=== PATIENT | female | born 1970 | race Asian ===

== ENCOUNTER 2025-02-18 12:04 | Emergency (ER) | payer BC ==
[~2025-02-18] VITALS: Ht 152.4 cm; Wt 52.3 kg
--- NOTE | 2025-02-18 12:18 | ELECTROCARDIOGRAPH REPORT ---
[facility] Test Date: 2025-02-18 Test Time: 12:09:54 Pat Name: MARY CARMEN MIDDLETON Department: EMERGENCY ROOM Room: Gender: F Civil Designer: : 1970 Requested By: CHRIS TURNER Order Number: [id number] Reading MD: Measurements Intervals [place] Rate: 76 P: 70 ME: 156 QRS: 99 QRSD: 105 T: 52 QT: 382 QTc: 430 Interpretive Statements Sinus rhythm Borderline right axis deviation RSR' in V1 or V2, probably normal variant ST elevation, consider inferior injury Please click the below link to view image of tracing.
[2025-02-18 12:35] LABS: MEAN PLATELET VOLUME 7.9 FL (7.4-10.4); RED CELL DISTRIBUTION WIDTH 11.8 % (11.5-14.5)
[2025-02-18 12:48] LABS: CREATININE 0.65 MG/DL (0.40-0.90); PRO BRAIN NATRIURETIC PEPTIDE < 30 PG/ML (0-125); TOTAL CARBON DIOXIDE 30.4 MMOL/L (24-32); eCRCL 71 ML/MIN; eGFR > 90 ML/MIN
--- NOTE | 2025-02-18 13:35 | RADIOLOGY REPORT ---
CHEST RADIOGRAPH Indication: CP Technique: Single frontal view of the chest was obtained COMPARISON: None FINDINGS: Lines and Tubes: None Lungs: Clear Pleura: No effusion. No pneumothorax. Cardiomediastinal contours: Unremarkable Bones: Unremarkable IMPRESSION: No acute disease.
--- NOTE | 2025-02-18 13:35 | Physician Documentation ---
History of Present Illness ~ Chief Complaint: Palpitations Stated Complaint: CP Time Seen by MD: 13:29 Primary Medical Doctor: adelia landrum Mode of Arrival: POV HPI Female presents to the ED after having palpitations over the last three days. She denies any chest pain reports general good health. She is very athletic. Denies any alcohol use states she does utilize caffeine regularly. Shortness of breast. Acknowledges history of anxiety. Day of Onset: Feb 18, 2025 Medication Reconciliation Allergies: Coded Allergies: No Known Allergies (Unverified , 02/18/25) Review of Systems All Other Systems at this time: Reviewed and Negative ROS As stated above in the HPI, otherwise all systems are reviewed and negative. Physical Exam Vital Signs: Temperature: 98.4, Source: Temporal, Heart Rate: 85, Respiratory Rate: 16, BP: 143/85, Pulse Oximetry: 99, Weight: 52.270 Oxygen Flow Rate: 0 Physical Exam General: Alert, no apparent distress. Respiratory: Lungs clear, no respiratory distress. Chest: No accessory muscle use. Cardiovascular: Regular rate and rhythm, no murmurs. Gastrointestinal: Soft, nontender, nondistended. Bowels sounds present. Neurologic: Oriented x4. Psychiatric: Normal mood and affect. Skin: Normal color, warm and dry. No edema, no ecchymosis. Progress Results/Orders Results/Orders Vital Signs 02/18/25 02/18/25 02/18/25 12:15 12:41 14:01 Temp 98.4 98.4 Pulse 85 62 Resp 16 15 B/P (MAP) 143/85 102/76 Pulse Ox 99 100 O2 Flow Rate 0 Laboratory Tests Test 02/18/25 12:14 White Blood Count 3.8 L Red Blood Count 4.58 Hemoglobin 13.7 Hematocrit 39.8 Mean Corpuscular Volume 86.9 Mean Corpuscular Hemoglobin 29.9 Mean Corpuscular Hemoglobin Concent 34.4 Red Cell Distribution Width 11.8 Platelet Count 249 Mean Platelet Volume 7.9 Neutrophils (%) (Auto) 69.5 Lymphocytes (%) (Auto) 21.2 Monocytes (%) (Auto) 7.1 Eosinophils (%) (Auto) 1.9 Basophils (%) (Auto) 0.3 Neutrophils # (Auto) 2.7 Lymphocytes # (Auto) 0.8 L Monocytes # (Auto) 0.3 Eosinophils # (Auto) 0.1 Basophils # (Auto) 0.0 CBC Comment Sodium Level 141 Potassium Level 3.5 Chloride Level 102 Carbon Dioxide Level 30.4 Anion Gap 9 Blood Urea Nitrogen 17 Creatinine 0.65 Estimated GFR/1.73 m2 > 90 BUN/Creatinine Ratio 26.2 H Glucose Level 151 H Calcium Level 9.5 Troponin I High Sensitivity < 4 L Troponin I High Sens Percent Delta Troponin I Hi Sens Absolute Change Pro-B-Type Natriuretic Peptide < 30 Albumin 4.3 Chemistry Comments Medical Decision Making Findings Healthy 54-year-old female presents with what I suspect are benign palpitations. Search stopped using caffeine and two and I encouraged to for her to pursue better sleep cycles appeared reassured after my findings which were unremarkable Differential Dx:Considerations: Include: angina / [place], atrial dysrhythmia, atrial fibrillation, atrial flutter, MAT, PACs, PSVT, sinus tachycardia, WPW, 1st degree AV block, 2nd degree AVB-type 1, 2nd degree AVB-type 2, 3rd degree AV block, PVCs, torsades de pointes, ventricular fibrillation, ventricular tachycardia, other Departure Disposition: 01 HOME / SELF CARE / HOMELESS Impression: Primary Impression: Palpitations Discharge Instructions: Palpitations, [id number] Referrals: NO PRIMARY CARE PROVIDER (PCP) Signature Scribe Signature: n Attestation: Scribed for Carlo Munoz [employer] Mechanic by Carlo Priest NP . 02/18/25 17:04 CARLO MUNOZ NP Feb 18, 2025 13:35
[2025-02-18 14:01] VITALS: BP 102/76; PULSE 62; RESP 15; TEMP 98.4; O2SAT 100
== END 2025-02-18 14:03 | disposition home or self-care (01) ==
LOC: ER 12:05
DX: R00.2 Palpitations (principal)
CPT/HCPCS: 36415; 71045; 80048; 83880; 84484; 85025; 93005; 99285